=== PATIENT | female | born 1960 | race Caucasian/White ===

== ENCOUNTER 2018-04-04 13:00 | Emergency (ER) | payer OTHER ==
[~2018-04-04] VITALS: Ht 162.6 cm; Wt 78.7 kg
[~2018-04-04 13:00] MED LIST: CYCL10TA6 PO; DULO60CA44 PO; FENO160T PO; HYDR-3983 PO; META1TAB22 PO; SIMV40TA2 PO
[2018-04-04 13:02] VITALS: TEMP 36.5; Ht 162.6 cm; Wt 78.7 kg
[2018-04-04] MEDS ORDERED: OXYCODONE HCL IR 5 MG TAB (IMMEDIATE RELEASE) PO STA (13:31)
[2018-04-04] MEDS ORDERED: IBUP-1277 PO (13:56)
--- NOTE | 2018-04-04 14:57 | DIAGNOSTIC IMAGING REPORT ---
L-SPINE MIN 4 VIEWS ROUTINE HISTORY: Pain low back pain COMPARISON: None. FINDINGS: There is no fracture. Considerable degenerative disc change primarily from L4 through L5. Moderate osteophytic change anteriorly and posteriorly. Degenerative changes of the posterior arch including posterior facets. No evidence for compression deformity. IMPRESSION: Considerable degenerative change considered most prominent at L4-L5. No acute process. The above report was generated using voice recognition software. It may contain grammatical, syntax or spelling errors. Electronically signed by: Jhony Dietz M.D. 04/04/2018 2:56 PM Dictated Date/Time: 04/04/2018 2:55 PM
[2018-04-04] MEDS ORDERED: METH4PAK PO (15:31)
[2018-04-04] MEDS ORDERED: CYCL10TA6 PO (15:31)
[2018-04-04] MEDS ORDERED: HYDR-5688 PO (15:31)
--- NOTE | 2018-04-04 15:33 | EMERGENCY ROOM VISIT NOTE ---
ED Visit Note First contact with patient: 13:24 CHIEF COMPLAINT: Low back pain HISTORY OF PRESENT ILLNESS: This 57-year-old female patient presents to the emergency department, ambulatory, complaining of pain in the low back which began last night. The patient states she was lifting a an approximately 25 pound laundry basket full of wet towels when she felt a pop in her left low back and left hip, immediately causing pain radiating down the posterior aspect of the left leg. The pain was gradual in onset, is now constant and worse with movement. The patient notes the pain as sharp and a 8/10. The patient has taken Advil without relief of the pain. The patient denies any loss of control of their bowel or bladder functions. There has been no leg numbness or weakness , and no change in sensation. No nausea or vomiting or abdominal pain. No chest pain or shortness of breath. The patient has not had prior back injuries , but does report a history of chronic back pain. No dysuria or increased urinary frequency. REVIEW OF SYSTEMS: A 10 system review of systems was performed with positives and pertinent negatives listed in the history of present illness. All other systems were reviewed and are negative. ALLERGIES: Penicillin, clindamycin MEDICATIONS: Metaxalone,, Zocor, TriCor PMH: Chronic back pain, hyperlipidemia SOCIAL HISTORY: The patient lives locally with family. She admits to smoking cigarettes. She denies drug, alcohol use. PHYSICAL EXAM: VITALS: Vitals are noted on the nurse's note and reviewed by myself. Vital signs stable. GENERAL: This is a 57-year-old white female, in no acute distress, nondiaphoretic, well-developed well-nourished. SKIN: The skin was without rashes, erythema, edema, or bruising. Capillary refill less than 2 seconds. NECK: Supple without nuchal rigidity. No cervical spine tenderness. No paraspinous muscle tenderness. HEART: Regular rate and rhythm without murmurs gallops or rubs. LUNGS: Clear to auscultation bilaterally without wheezes, rales or rhonchi. ABDOMEN: Positive bowel sounds x 4. Normal tympanic percussion. Soft, nontender, without masses or organomegaly. Kerns sign negative. MUSCULOSKELETAL: No muscle atrophy, erythema, or edema noted of the back. There is no tenderness over the lumbar spinous processes. There is moderate tenderness over the paraspinous muscles on the left. There is no tenderness over the thoracic spine or paraspinous muscles. There are muscle spasms present. The patient is slow to move around with maximum tenderness with position changes. Positive left-sided straight leg raise test. NEURO: Patient was alert and oriented to person place and time. Normal sensation to light and sharp touch. Deep tendon reflexes 2+ in the lower extremities. Dorsalis pedis pulse 2+ bilaterally. Strength 5/5 and equal in the bilateral lower extremities. RADIOLOGY: L-SPINE MIN 4 VIEWS ROUTINE HISTORY: Pain low back pain COMPARISON: None. FINDINGS: There is no fracture. Considerable degenerative disc change primarily from L4 through L5. Moderate osteophytic change anteriorly and posteriorly. Degenerative changes of the posterior arch including posterior facets. No evidence for compression deformity. IMPRESSION: Considerable degenerative change considered most prominent at L4-L5. No acute process. The above report was generated using voice recognition software. It may contain grammatical, syntax or spelling errors. Electronically signed by: Jhony Dietz M.D. 04/04/2018 2:56 PM Dictated Date/Time: 04/04/2018 2:55 PM EMERGENCY DEPARTMENT COURSE: This 57-year-old female patient presents emergency department today complaining of severe back pain. The patient is not exhibiting any symptoms or have any complaints of cauda equina syndrome. The pain radiates down her left hip and left leg. She has been taking ibuprofen without relief. The patient does have a history of chronic back pain, and has experienced sciatica similar to this in the past. She has not seen any other providers regarding her pain. The patient was given a dose of OxyIR here in the emergency department with moderate improvement in her symptoms. X-rays were performed and reviewed by myself and radiologist as above. I suspect a lumbar strain with sciatica as the cause of the patient's symptoms. I did review PD MP and noted she had multiple short-term prescriptions for narcotics, but did recently have a rib fracture. The patient will be given a very short prescription of Christine as well as started on muscle relaxers and a Medrol Dosepak. She was encouraged to follow-up closely with her PCP and consider physical therapy as needed. The patient was agreeable and verbalized understanding of the treatment plan. All questions answered patient satisfaction prior to discharge. Discharge instructions reviewed, patient was discharged home in good condition. I attest that I have personally reviewed the patient's current medication list. Patient was found to have normal blood pressure on screening and does not require follow-up. Etiologies such as lumbago, sciatica, cauda equina, epidural abscess, osteomyelitis, fracture, aortic disease, metastatic disease, infection, renal colic, gastrointestinal, as well as others were entertained. DIAGNOSIS: Lumbar strain, sciatica The chart was completed utilizing [employer] Speech voice recognition software. Grammatical errors, random word insertions, pronoun errors, and incomplete sentences are an occasional consequence of this system due to software limitations, ambient noise, and hardware issues. Any formal questions or concerns about the content, text, or information contained within the body of this dictation should be directly addressed to the provider for clarification. Problem List Medical Problems: (1) Anxiety Disorder, Unspecified Status: Chronic (2) Chronic low back pain Status: Chronic (3) Depressive Disorder Nec Status: Chronic (4) Hyperlipidemia, Unspecified Status: Chronic Surgical Problems: (1) History of lumbar discectomy Status: Resolved (2) History of lumbar laminectomy Status: Resolved Current/Historical Medications Scheduled Cyclobenzaprine Hcl (Flexeril), 10 MG PO TID Duloxetine Hcl (Cymbalta), 60 MG PO HS Fenofibrate (Tricor), 160 MG PO HS Ibuprofen (Advil), 200 MG PO UD Methylprednisolone (Medrol Dosepak), 0 PO DAILY Simvastatin (Zocor), 40 MG PO QPM Scheduled PRN Cyclobenzaprine Hcl (Flexeril), 10 MG PO TID PRN for HS Hydrocodone/Acetaminophen 5MG/325MG (Christine 5MG/325MG), 1 TABLET PO Q4H PRN for Pain Metaxalone (Skelaxin), 800 MG PO TID PRN for prn Allergies Coded Allergies: Penicillins (Verified Allergy, Unknown, SINCE CHILD,DOESN'T KNOW RXN, ) Clindamycin (Unverified Adverse Reaction, Severe, FEVER BLISTERS IN MOUTH , 04/04/18) Vital Signs Date Time Temp Pulse Resp B/P (MAP) Pulse Ox O2 Delivery O2 Flow Rate FiO2 04/04/18 15:47 87 18 130/85 96 04/04/18 13:02 36.5 103 18 130/90 96 Room Air Medications Administered Medications (Trade) Dose Ordered Sig/Henny Route Start Time Stop Time Status Last Admin Dose Admin Oxycodone HCl (Roxicodone Immediate Rel Tab) 5 mg NOW STAT PO 04/04/18 13:31 04/04/18 13:32 DC 04/04/18 13:53 5 MG Departure Information Impression Primary Impression: Strain of lumbar region Additional Impression: Sciatica Dispostion Home / Self-Care Condition GOOD Prescriptions Hydrocodone/Acetaminophen 5MG/325MG (Christine 5MG/325MG) Tab 1 TABLET PO Q4H Y for Pain, #10 TAB For Initial Treatment Prov: Linda Johnson PA-C 04/04/18 Methylprednisolone (MEDROL DOSEPAK) 4 Mg Shaka 0 PO DAILY, #1 PKT Prov: Linda Johnson PA-C 04/04/18 Cyclobenzaprine Hcl (FLEXERIL) 10 Mg Tab 10 MG PO TID, #15 TAB Prov: Linda Johnson PA-C 04/04/18 Referrals Yi Ruiz CRNP (PCP) Patient Instructions ED Low Back Pain Injury, [facility] Additional Instructions You have been treated in the Emergency Department for Back Pain. You have received pain medicine in the emergency department which impairs your ability to operate a vehicle. It is illegal for you to drive after receiving these medicines. You have been prescribed Christine to be used for pain control. This is a narcotic medication. You cannot drive or consume alcohol while on this medicine. This medicine should only be used for pain that cannot be controlled with over-the- counter pain medicines. You have been prescribed Flexeril (cyclobenzaprine) 1 tabs orally, three times per day. Do NOT exceed 30 mg (3 tabs) per day. Take your first dose at bedtime as it can make you drowsy. Always take all medications as prescribed. You have been prescribed a Medrol Dosepak. This is a steroid which will help decrease your inflammation, redness, and itch. Take the medicine as prescribed. Take the ENTIRE 6 day course of the steroids. For pain control, you can use the following neov-qbf-tbaazle medicines (if >12 yo): Ibuprofen(Motrin, Advil) may be used for fever or pain. Use 600mg every six hours as needed. Take with food. Avoid using more than 2400mg in a 24 hour period. Do not use 2400mg per day for more than three consecutive days without physician direction. Prolonged inappropriate use can lead to stomach upset or ulcers. (AND/OR) Acetaminophen(Tylenol) may be used for fever or pain. Use 1000mg every six hours as needed. Avoid using more than 3000mg in a 24 hour period. If this is an acute injury, ice can be applied to the area of pain for the first 3 days to help decrease pain and inflammation. After the first 3 days, a heating pad can be used over the area for continued soothing relief. You should schedule a follow-up appointment in 2-3 days with your Primary Care Provider for further evaluation and treatment of your back pain. Return to the Emergency Department if your current symptoms worsen despite treatment course outlined above, or if you develop any of the following symptoms : intractable pain despite aforementioned treatment course, loss of control of your bowel or bladder, numbness or tingling in your groin, or development of a fever. Problem Qualifiers Primary Impression: Strain of lumbar region Encounter type: initial encounter Qualified Codes: S39.012A - Strain of muscle, fascia and tendon of lower back, initial encounter Additional Impression: Sciatica Laterality: left Qualified Codes: M54.32 - Sciatica, left side
[2018-04-04 15:47] VITALS: BP 130/85; PULSE 87; O2SAT 96
== END 2018-04-04 15:42 | disposition home or self-care (01) ==
LOC: C.EDB 13:01 → C.EDD 15:42
DX: M54.42 Lumbago with sciatica, left side (principal); S39.012A Strain of muscle, fascia and tendon of lower back, initial encounter; X50.0XXA Overexertion from strenuous movement or load, initial encounter; E78.5 Hyperlipidemia, unspecified; G89.29 Other chronic pain; Z88.0 Allergy status to penicillin; Z88.1 Allergy status to other antibiotic agents; Z79.899 Other long term (current) drug therapy; Z72.0 Tobacco use

== ENCOUNTER 2020-06-05 09:36 | Inpatient (IN) ==
--- NOTE | 2020-05-20 09:26 | PAT Medication Instructions ---
Medication Instructions Date of Service May 20, 2020 Home Medications Medication Instructions Recorded fenofibrate 160 mg tablet 160 mg PO HS #90 tab 10/30/19 duloxetine 60 mg capsule,delayed 60 mg PO HS #90 cap 12/01/19 release simvastatin 40 mg tablet 40 mg PO HS #90 tab 03/06/20 lidocaine 1 patch TOP DAILY PRN #15 ea 04/14/20 estradiol 2 mg tablet 2 mg PO DAILY #90 tab 04/23/20 progesterone micronized 100 mg 100 mg PO QAM 90 Days #90 cap 04/23/20 capsule pregabalin 200 mg capsule 200 mg PO TID #90 cap 04/29/20 bupropion HCl 300 mg 24 hr tablet, 300 mg PO QAM #90 tab 05/15/20 extended release hydrocodone 5 mg-acetaminophen 325 1 tab PO Q4H PRN #18 tab 05/15/20 mg tablet ibuprofen 200 mg tablet 600 mg PO BID PRN cyclobenzaprine 10 mg tablet 10 mg PO HS PRN fenofibrate 160 mg tablet 160 mg PO HS duloxetine 60 mg capsule,delayed release 60 mg PO HS simvastatin 40 mg tablet 40 mg PO HS lidocaine 1 patch TOP DAILY PRN estradiol 2 mg tablet 2 mg PO DAILY progesterone micronized 100 mg capsule 100 mg PO QAM pregabalin 200 mg capsule 200 mg PO TID bupropion HCl 300 mg 24 hr tablet, extended release 300 mg PO QAM hydrocodone 5 mg-acetaminophen 325 mg tablet 1 tab PO Q4H PRN Continue as directed lidocaine 1 patch TOP DAILY PRN (okay to use if needed but avoid placement over surgery site area prior to surgery) ASK your surgeon for instructions ibuprofen 200 mg tablet 600 mg PO BID PRN estradiol 2 mg tablet 2 mg PO DAILY progesterone micronized 100 mg capsule 100 mg PO QAM STOP taking 48 hours before surgery fenofibrate 160 mg tablet 160 mg PO HS Take morning of surgery With a small sip of water, OTHERWISE NOTHING TO EAT OR DRINK AFTER MIDNIGHT: pregabalin 200 mg capsule 200 mg PO TID bupropion HCl 300 mg 24 hr tablet, extended release 300 mg PO QAM hydrocodone 5 mg-acetaminophen 325 mg tablet 1 tab PO Q4H PRN (okay to take up to 4 hours prior to surgery if needed) Take evening before surgery cyclobenzaprine 10 mg tablet 10 mg PO HS PRN (if needed) duloxetine 60 mg capsule,delayed release 60 mg PO HS simvastatin 40 mg tablet 40 mg PO HS pregabalin 200 mg capsule 200 mg PO TID hydrocodone 5 mg-acetaminophen 325 mg tablet 1 tab PO Q4H PRN (if needed) Other Notes If you have any questions please call us at [phone] or [phone] or [phone] or [phone]
--- NOTE | 2020-05-21 14:52 | Anesthesiology Consultation ---
Date of Service May 21, 2020 Assessment & Plan (1) Encounter for pre-operative examination: - Per assessment on 05/21: Travel screen negative. No known COVID-19 positive contacts or current COVID-19 related symptoms. Surgeon arranging preop COVID testing. Awaiting results. - S/P L3-L4 microdiscectomy: 12/20/12: "easy to mask ventilate"/Grade I view, MAC#3, ETT 7 at [facility] Chart Review Chart Review: Acceptable Risk for Surgery (pending surgeon-ordered PCP clearance) and Patient seen in Pre Admission Testing Teaching & Discussion Pre-Anesthesia Teaching/Discussion Notes: Instructed NPO after midnight before surgery,except medications with 15 cc of water. Medication instructions provided according to the PAT guidelines. History Surgery Operation Date: 06/04/20 11:05 Proposed Procedures p L3-L4 Revision Decompression L3-L5 Fusion - Serge Arthur DO Height/Weight Height: 5 ft 6 in Weight: 89 kg Allergies Allergy/AdvReac Type Severity Reaction Status Date / Time clindamycin Allergy Severe fever, Verified 05/20/20 09:24 mouth blisters Penicillins Allergy Unknown rxn as Verified 05/20/20 09:24 child, unknown rxn Medications Home Medications Medication Instructions Recorded Confirmed Last Taken ibuprofen 200 mg tablet 600 mg PO BID PRN tab 05/16/18 05/17/20 04/14/20 07:30 cyclobenzaprine 10 mg tablet 10 mg PO HS PRN tab 02/06/19 05/17/20 Unknown fenofibrate 160 mg tablet 160 mg PO HS #90 tab 10/30/19 05/17/20 04/13/20 duloxetine 60 mg capsule,delayed 60 mg PO HS #90 cap 12/01/19 05/17/20 04/13/20 release simvastatin 40 mg tablet 40 mg PO HS #90 tab 03/06/20 05/17/20 04/13/20 lidocaine 1 patch TOP DAILY PRN #15 ea 04/14/20 05/17/20 Unknown estradiol 2 mg tablet 2 mg PO DAILY #90 tab 04/23/20 05/17/20 Unknown progesterone micronized 100 mg 100 mg PO QAM 90 Days #90 cap 04/23/20 05/17/20 Unknown capsule pregabalin 200 mg capsule 200 mg PO TID #90 cap 04/29/20 05/17/20 Unknown bupropion HCl 300 mg 24 hr tablet, 300 mg PO QAM #90 tab 05/15/20 05/17/20 Unknown extended release hydrocodone 5 mg-acetaminophen 325 1 tab PO Q4H PRN #18 tab 05/15/20 05/17/20 Unknown mg tablet Past Medical History Medical History Degenerative disc disease Depressive disorder Dyslipidemia Obesity Exercise / Class Metabolic Activity II 4-5 Yardwork/Stairs/Walk up hill (one flight of stairs (no chest pain, no sob)) Past Family History Family History Mother Breast cancer Hypertension Grandmother (Maternal) Breast cancer Father Diabetes Other No family history of adverse response to anesthesia Denies family history of Ovarian cancer Prostate cancer Myocardial infarction Colorectal cancer Past Surgical History Surgical History H/O microdiscectomy L3-L4 microdiscectomy: 12/20/12: "easy to mask ventilate"/Grade I view, MAC#3, ETT 7 at [facility] History of colonoscopy History of lumbar laminectomy History of tonsillectomy and adenoidectomy Past Anesthesia History No Hx of Anesthesia Complications and No Family Hx of Anesthesia Complications History of PONV No Hx of PONV and No Hx of Motion Sickness Social History Smoking Status: Current every day smoker tobacco type: cigarettes Smoking cigarettes per day: 1/2 ppd x 30 years Do You Dip or Chew Tobacco: No Hx Alcohol Use: No Hx Substance Use: No substance use type: does not use Review of Systems Patient denies chest pain, shortness of breath, dyspnea on exertion, fever, chills, cough, wheezing, palpitations. Physical Exam PHYSICAL Full neck and c-spine range of motion. Full TMJ range of motion. TMD 3 finger breaths Mallampati Score 2 Lungs: clear throughout to auscultation Cardiac: regular rate and rhythm, no murmurs noted Spine: normal Carotid arteries: negative bruit Extremities: no edema Testing Laboratory Results PT 10.9 Seconds (9.0-12.0) 05/21/20 15:27 INR 1.0 (0.9-1.1) 05/21/20 15:27 APTT 29.6 Seconds (21.0-31.0) 05/21/20 15: Urine Color Yellow 05/21/20 15: Urine Appearance Clear (Clear) 05/21/20 15: Urine pH 5.0 (4.5-7.5) 05/21/20 15: Ur Specific Gleason 1.025 (1.000-1.030) 05/21/20 15: Urine Protein Negative (Negative) 05/21/20 15: Urine Glucose (UA) Negative (Negative) 05/21/20 15: Urine Ketones Negative (Negative) 05/21/20 15: Urine Nitrite Negative (Negative) 05/21/20 15: Ur Leukocyte Esterase Negative (Negative) 05/21/20 15: Blood Type O Positive 05/21/20 15: Antibody Screen NEGATIVE 05/21/20 15:27 04/29/20 WBC 8.44 H/H 15.1/46.5 PLATELETS 275 04/14/20 SODIUM 141 POTASSIUM 4.2 CHLORIDE 110 CO2 25 BUN 19 CREATININE 1.09 GLUCOSE 104 Electrocardiogram Date: 05/21/20 NSR at 87bpm. unconfirmed report. Other Testing Chest CT: 05/16/20: FINDINGS: Thyroid: Imaged portions of the thyroid gland are normal in appearance. Thoracic aorta: The ascending thoracic aorta measures 34 mm in diameter. Heart: The heart is normal in size and configuration, without pericardial effusion. Lungs and pleural spaces: There are no pleural effusions. There is no focal pulmonary consolidation. No endobronchial lesions are visualized. There are no suspicious pulmonary nodules. Mediastinum: There is no evidence of pathologic mediastinal lymphadenopathy. Jami: There is no evidence of pathologic hilar adenopathy given the limitations of a noncontrast study. Axilla: There is no evidence of pathologic axillary lymphadenopathy. Upper abdomen: Partially visualized upper abdominal viscera is within normal limits. Skeletal structures: There are no lytic or blastic osseous lesions. IMPRESSION: No suspicious pulmonary findings.
[2020-05-21 16:11] LABS: Appearance Urine Clear (Clear); Bilirubin Urine Negative (Negative); Blood Urine Negative (Negative); Color Urine Yellow; Glucose Urine UA Negative (Negative); Ketones Urine Negative (Negative); Leukocyte Esterase Urine Negative (Negative); Nitrite Urine Negative (Negative); Protein Urine Negative (Negative); Specific Gravity Urine 1.025 (1.000-1.030); Urobilinogen Urine Negative (Negative)
[2020-05-21 16:19] LABS: Partial Thromboplastin Ratio 1.1; Partial Thromboplastin Time 29.6 Seconds (21.0-31.0); Prothrombin Time 10.9 Seconds (9.0-12.0)
--- NOTE | 2020-05-22 14:23 | Electrocardiogram Report ---
Test Reason : Blood Pressure : / mmHG Vent. Rate : 087 BPM Atrial Rate : 087 BPM P-R Int : 160 ms QRS Dur : 096 ms QT Int : 370 ms P-R-T Axes : 067 072 055 degrees QTc Int : 445 ms Normal sinus rhythm Normal ECG When compared with ECG of 14-DEC-2012 14:56, Nonspecific T wave abnormality no longer evident in Inferior leads Confirmed by Andrew Fong ([id number]) on 05/22/2020 2:22:32 PM Referred By: Serge Arthur Confirmed By:Andrew Fong
[~2020-06-05 09:36] MED LIST changes: +ACETAMINOPHEN 500 MG TAB PO SCH; +CEFAZOLIN 2000MG 2,000 MG/15 ML SYR IV SCH; -CYCL10TA6 PO; +CeleBREX 200 MG CAP PO SCH; -DULO60CA44 PO; -FENO160T PO; +GABAPENTIN 600 MG DOSE PO SCH; -HYDR-3983 PO; +LR 15ML/HR IV SCH; -META1TAB22 PO; -SIMV40TA2 PO
[2020-06-05] MEDS ORDERED: NEOSTIGMINE METHYLSULFATE 1 MG/ML 10ML VIAL ONE (09:39)
[2020-06-05] MEDS ORDERED: MIDAZOLAM HCL 1 MG/ML 2ML VIAL ONE (09:39)
[2020-06-05] MEDS ORDERED: GLYCOPYRROLATE 0.2 MG/ML VIAL ONE ×2 (09:39→12:34)
[2020-06-05] MEDS ORDERED: ONDANSETRON INJ 2 MG/ML 2 ML VIAL ONE (09:39)
[2020-06-05] MEDS ORDERED: DEXAMETHASONE SOD INJ 4 MG/ML VIAL ONE (09:39)
[2020-06-05] MEDS ORDERED: LIDOCAINE HCL 2% 2 ML VIAL/AMP(20MG/ML) INFIL ONE (09:39)
[2020-06-05] MEDS ORDERED: ROCURONIUM BROMIDE 10 MG/ML 5 ML VIAL IV ONE (09:39)
[2020-06-05] MEDS ORDERED: PROPOFOL IV EMULSION 10 MG/ML 20 ML VIAL IV ONE (09:39)
[2020-06-05] MEDS ORDERED: fentaNYL citrate 100 MCG/2 ML VIAL ONE (09:39)
[2020-06-05] MEDS ORDERED: ATROPINE SULFATE 0.1 MG/ML 10ML SYR IV PRN (10:33)
[2020-06-05] MEDS ORDERED: ePHEDrine sulfate 50 MG/ML AMP IV PRN (10:33)
[2020-06-05] MEDS ORDERED: ONDANSETRON INJ 2 MG/ML 2 ML VIAL IV PRN ×2 (10:33→15:54)
--- NOTE | 2020-06-05 10:50 | History & Physical Bridge Note ---
Date of Service June 05, 2020 History & Physical Bridge Note I have examined the patient, reviewed the History & Physical and in the interval since the performance of the History & Physical I have noted the following changes of clinical significance: no changes noted
--- NOTE | 2020-06-05 10:51 | History & Physical Report ---
Date of Service June 05, 2020 Assessment & Plan (1) Neurogenic claudication due to lumbar spinal stenosis: Admission and Anticipated Discharge Date Admission Date: L3-L4 revision decompression, L3-L5 fusion History of Present Illness Chief Complaint: Back and bilateral leg pain Primary Care Provider: Elian Littlejohn MD This is a 60-year-old female who presents with worsening back and bilateral leg pain. After failing course of nonoperative care is here for surgical invention. Allergies Allergy/AdvReac Type Severity Reaction Status Date / Time clindamycin Allergy Severe fever, Verified 06/05/20 09:48 mouth blisters Penicillins Allergy Unknown rxn as Verified 06/05/20 09:48 child, unknown rxn Home Medications Home Medications Medication Instructions Recorded Confirmed Type ibuprofen 200 mg tablet 600 mg PO BID PRN tab 05/16/18 06/05/20 History cyclobenzaprine 10 mg tablet 10 mg PO HS PRN tab 02/06/19 06/05/20 History fenofibrate 160 mg tablet 160 mg PO HS #90 tab 10/30/19 06/05/20 Rx duloxetine 60 mg capsule,delayed 60 mg PO HS #90 cap 12/01/19 06/05/20 Rx release simvastatin 40 mg tablet 40 mg PO HS #90 tab 03/06/20 06/05/20 Rx estradiol 2 mg tablet 2 mg PO DAILY #90 tab 04/23/20 06/05/20 Rx progesterone micronized 100 mg 100 mg PO QAM 90 Days #90 cap 04/23/20 06/05/20 Rx capsule bupropion HCl 300 mg 24 hr tablet, 300 mg PO QAM #90 tab 05/15/20 06/05/20 Rx extended release pregabalin 200 mg capsule 200 mg PO TID #90 cap 05/28/20 06/05/20 Rx acetaminophen [Tylenol Extra 1,000 mg PO Q6H PRN 06/05/20 06/05/20 History Strength] Past Med/Surg History Medical History Degenerative disc disease Depressive disorder Dyslipidemia Obesity Surgical History H/O microdiscectomy L3-L4 microdiscectomy: 12/20/12: "easy to mask ventilate"/Grade I view, MAC#3, ETT 7 at [facility] History of colonoscopy History of lumbar laminectomy History of tonsillectomy and adenoidectomy Family History Mother Breast cancer Hypertension Grandmother (Maternal) Breast cancer Father Diabetes Other No family history of adverse response to anesthesia Denies family history of Ovarian cancer Prostate cancer Myocardial infarction Colorectal cancer Social History Smoking Status: Current every day smoker (STARTED AT 17 YEARS OLD, AVERAGED 20 CIGARETTES/DAY) Tobacco Type: Cigarettes Cigarettes Per Day: 10; Second Hand Exposure: No; Do You Dip or Chew Tobacco: No; Tobacco Cessation Education Requested by Patient: No Hx Alcohol Use: No Hx Substance Use: No Preferred Language: Frisian Communication Ability: Effective Visual Impairment: Limited Hearing Ability: Normal Jewel Waxer Required: No Beliefs That Will Affect Care: None marital status: Current Living Situation: Family Feels Safe at Home: Yes Safety Concerns: Feels Safe At This Time Assistive Devices: Glasses Physical Exam Physical Exam: Patient is alert and oriented Heart regular rate and rhythm. Lungs clear to auscultation. Results & Data ([facility]) Vital Signs (Past 12 Hours) Vital Signs Temp Pulse Resp BP Pulse Ox 06/05/20 10:03 36.6 C 90 20 145/88 H 96
[2020-06-05] MEDS ORDERED: BUPIVACAINE/EPINEPHRINE 0.25% 1:200,000 30 ML VIAL ONE (11:08)
[2020-06-05] MEDS ORDERED: BACITRACIN INJ 50,000 UNIT VIAL ONE (11:08)
[2020-06-05] MEDS ORDERED: PHENYLEPHRINE 100MCG/ML 5ML SYR ONE (12:34)
--- NOTE | 2020-06-05 13:32 | Operative Report ---
Post Operative Report Pre & Post Diagnosis Operation Date: 06/05/20 11:05 Pre-Op Diagnosis: Spinal Stenosis, Lumbar Region with Neurogenic Claudication Post-Op Diagnosis: Spinal Stenosis, Lumbar Region with Neurogenic Claudication I identified the patient and participated in the time-out.: Yes Procedure Operation Date: 06/05/20 11:05 Actual Procedures #1 revision decompression with bilateral medial facetectomies and foraminotomies L3-4 and L4-5 per #2 posterior spinal fusion L3 4454 #3 placed posterior instrumentation L3-4 L4-5 per #4 interbody fusion L3-4 L4-5 #5 placed a peek cage 11 x 26 mm at L3-4 and 9 x 26 mm at L4-5. #6 placement likely Hand 1 cm graft in the posterior lateral gutters. #7 placement for his collagen sponge, and master graft in the posterior gutters and osteopenic body space. Surgeon Sereg Arthur, DO Tobacco Blender Katlin Gaitan Estimated Blood Loss 250 Findings See Below The patient is 5 foot 6 inches tall weighing over 87 kg with a BMI in excess of 31. Patient's body habitus did an increased technical difficulty requiring at least 25% increase in the operative time. Specimens None Indications This is a 60-year-old female who presents with above-mentioned diagnosis after failing since course of nonoperative care is here for the above-mentioned procedure. Description of Procedure Patient was met with identified informed consent obtained. Patient was then taken to the operative suite underwent and patient placed in a prone position on a Stone table on top of the listed frame. All bony prominences well-padded I suspected to ensure no external pressure placed upon the bed at this point the lumbar spine was prepped and draped in normal sterile fashion. Sharp dissection with the assistance of bradycardias from down to and exposing the remaining lamina and transverse processes of L3-L4 and L5 bilaterally. Caudal cephalad fashion revision complete laminectomy of L4 and L3 was performed including bilateral medial facetectomies and foraminotomies addressing severe spinal stenosis. Pedicle screws were then placed in L3 and L4 on L5 bilaterally with assistance of fluoroscopy the potential jason placed. By way of transfemoral approach on radically discectomy of L4-5 was performed and projected to subcortical bleeding bone and a 9 x 26 mm peek cage filled with osteoamp graft after position. I then approached L3-[address] of transfer and approach on the right and the discectomy performed endplates graded to subcortical bleeding bone and 11 x 26 mm peek cage filled with osteoamp graft tapped in position. There are then compressed locked position bilaterally. The transverse processes of L3-L4 5 to subcortical bleeding bone. Master graft and infuse collagen sponge was then placed in the posterior lateral gutters. 59 STEPHANE drain inserted. Incision was then closed with 1 Vicryl in the fascia 2-0 Vicryl subcutaneously and 4 Monocryl for final skin closure. Please note spinal cord monitoring was utilized throughout the procedure no changes noted. Laila Gaitan was present at the entire surgery and while the patient position complex portions of the surgery and final skin closure. I attest to the content of the Intraoperative Record and any orders documented therein. Any exceptions are noted below.
[2020-06-05] MEDS: FLOSEAL HEMOSTATIC MATRIX 10ML TOP ONE (13:35)
[2020-06-05] MEDS: fentaNYL citrate 100 MCG/2 ML VIAL IV PRN ×2 (13:57→14:02)
[2020-06-05] MEDS: HYDROmorphone INJ 2 MG/ML SYR/VIAL IV PRN ×4 (14:07→14:25)
--- NOTE | 2020-06-05 14:16 | Fluoroscopy Report ---
INTRAOPERATIVE RADIOGRAPHS CLINICAL HISTORY: Lumbar spinal fusion. Fluoroscopy time: 20 seconds. FINDINGS: 2 spot fluoroscopic views of the lumbar spine are presented. There has been discectomy at L 3-L4 and L4-L5 laminectomy and posterior fusion from L3-L5. Interpedicular screws are present at all levels. The orthopedic hardware appears intact. IMPRESSION: Intraoperative images from L3-L5 spinal fusion as above. Electronically signed by: Jagjit Murphy M.D. 06/05/2020 2:14 PM
--- NOTE | 2020-06-05 14:38 | Anesthesiology Progress Note ---
Date of Service June 05, 2020 Anesthesia Post Procedure Vital Signs Vital Signs: Temp Pulse Pulse Resp BP BP Pulse Ox 06/05/20 14:25 90 16 145/87 H 96 06/05/20 14:15 87 12 136/80 98 06/05/20 14:05 88 15 146/95 H 96 06/05/20 13:55 86 15 151/96 H 97 06/05/20 13:48 36.5 C 85 12 151/96 H 96 06/05/20 10:03 36.6 C 90 20 145/88 H 96 Pain Intensity Lower Back: Pain Intensity: 5 Transfer of Care Handoff Completed per policy Notes Mental Status: alert / awake / arousable and participated in evaluation Patient Amnestic to Procedure: Yes Nausea / Vomiting: adequately controlled Pain: adequately controlled Airway Patency, RR, SpO2: stable & adequate BP & HR: stable & adequate Hydration State: stable & adequate Anesthetic Complications: no major complications apparent and Pt Satisfied with anesthetic care
[2020-06-05] MEDS ORDERED: DO NOT ADMINISTER FLU VACCINE PRN (15:54)
[2020-06-05] MEDS ORDERED: HYDROmorphone INJ 0.5 MG/0.5 ML SYR IV PRN (15:54)
[2020-06-05] MEDS ORDERED: MAGNESIUM HYDROXIDE SUSP 30 ML UDC PO PRN (15:54)
[2020-06-05] MEDS ORDERED: ACETAMINOPHEN 1,000 MG/100 ML VIAL IV PRN (15:54)
[2020-06-05] MEDS ORDERED: ALUMINUM/MAGNESIUM SUSP 30 ML UDC PO PRN (15:54)
[2020-06-05] MEDS ORDERED: IBUPROFEN 600 MG TAB PO PRN (15:54)
[2020-06-05] MEDS ORDERED: SOD PHOSPHATE/SOD BIPHOSPHATE ENEMA 132 ML BTL PR PRN (15:54)
[2020-06-05] MEDS ORDERED: METOCLOPRAMIDE HCL INJ 5 MG/ML 2 ML VIAL IV PRN (15:54)
[2020-06-05] MEDS ORDERED: bisacodyL 10 MG SUPP PR PRN (15:54)
[2020-06-05] MEDS ORDERED: ONDANSETRON 4 MG OD TAB PO PRN (15:54)
[2020-06-05] MEDS ORDERED: NALOXONE HCL 0.4 MG/1 ML VIAL/CARP IV PRN (15:54)
[2020-06-05] MEDS ORDERED: DO NOT ADMINISTER PNEUMOCOCCAL VACCINE PRN (15:54)
[2020-06-05] MEDS ORDERED: LORazepam 0.5 MG TAB PO PRN (15:54)
[2020-06-05] MEDS ORDERED: PROMETHAZINE HCL 12.5 MG in SODIUM CHLORIDE 0.9% 50 ML IV PRN (15:54)
[2020-06-05] MEDS ORDERED: LORazepam 0.5 MG/1 ML VIAL IV PRN (15:54)
[2020-06-05] MEDS ORDERED: LACTATED RINGER'S 1,000 ML IV SCH (15:54)
[2020-06-05] MEDS ORDERED: FAMOTIDINE 20 MG TAB PO PRN (15:54)
[2020-06-05] MEDS ORDERED: CYCLOBENZAPRINE HCL 10 MG TAB PO PRN (16:00)
[2020-06-05] MEDS: OXYCODONE HCL IR 5 MG TAB (IMMEDIATE RELEASE) PO PRN ×2 (16:17→20:20)
--- NOTE | 2020-06-05 17:32 | Hospitalist Consultation ---
Date of Consultation June 05, 2020 Assessment & Plan (1) Chronic lumbar pain: s/p L3-L4 Revision Decompression, L3-L5 Fusion Surgeon: Serge Arthur, continues with lyrica and prn pain medications patient has a STEPHANE drain in place (2) Depressive disorder: continue Cymbalta and Wellbutrin (3) Tobacco dependence: nicotine patch ordered History of Present Illness Attending Physician: Serge Arthur, DO History of Present Illness 06/05/20 L3-L4 Revision Decompression, L3-L5 Fusion, patient seen postoperatively she doing quite well her pain is controlled she has no complaints or problems he previously has had discectomies without good relief subsequently eventually proceeding to this decompression fusion Allergies Allergy/AdvReac Type Severity Reaction Status Date / Time clindamycin Allergy Severe fever, Verified 06/05/20 09:48 mouth blisters Penicillins Allergy Unknown rxn as Verified 06/05/20 09:48 child, unknown rxn Home Medications Home Medications Medication Instructions Recorded Confirmed Type ibuprofen 200 mg tablet 600 mg PO BID PRN tab 05/16/18 06/05/20 History cyclobenzaprine 10 mg tablet 10 mg PO HS PRN tab 02/06/19 06/05/20 History fenofibrate 160 mg tablet 160 mg PO HS #90 tab 10/30/19 06/05/20 Rx duloxetine 60 mg capsule,delayed 60 mg PO HS #90 cap 12/01/19 06/05/20 Rx release simvastatin 40 mg tablet 40 mg PO HS #90 tab 03/06/20 06/05/20 Rx estradiol 2 mg tablet 2 mg PO DAILY #90 tab 04/23/20 06/05/20 Rx progesterone micronized 100 mg 100 mg PO QAM 90 Days #90 cap 04/23/20 06/05/20 Rx capsule bupropion HCl 300 mg 24 hr tablet, 300 mg PO QAM #90 tab 05/15/20 06/05/20 Rx extended release pregabalin 200 mg capsule 200 mg PO TID #90 cap 05/28/20 06/05/20 Rx acetaminophen [Tylenol Extra 1,000 mg PO Q6H PRN 06/05/20 06/05/20 History Strength] Patient History Medical History (Updated 06/05/20 @ 17:49 by Franco Zaman MD) Degenerative disc disease Depressive disorder Dyslipidemia Obesity Surgical History H/O microdiscectomy L3-L4 microdiscectomy: 12/20/12: "easy to mask ventilate"/Grade I view, MAC#3, ETT 7 at [facility] History of colonoscopy History of lumbar laminectomy History of tonsillectomy and adenoidectomy Family History Mother Breast cancer Hypertension Grandmother (Maternal) Breast cancer Father Diabetes Other No family history of adverse response to anesthesia Denies family history of Ovarian cancer Prostate cancer Myocardial infarction Colorectal cancer Social History Smoking Status: Current every day smoker (STARTED AT 17 YEARS OLD, AVERAGED 20 CIGARETTES/DAY) Tobacco Type: Cigarettes Cigarettes Per Day: 10; Second Hand Exposure: No; Do You Dip or Chew Tobacco: No; Tobacco Cessation Education Requested by Patient: No Hx Alcohol Use: No Hx Substance Use: No Preferred Language: Lao Communication Ability: Effective Visual Impairment: Limited Hearing Ability: Normal Manager Agriculture Required: No Beliefs That Will Affect Care: None marital status: Current Living Situation: Family Feels Safe at Home: Yes Safety Concerns: Feels Safe At This Time Assistive Devices: Glasses Review of Systems Review of Systems: Mild distress and fatigue no headache, blurry or double vision no speech or swallowing issues no chest pain, pressure or palpitations no shortness of breath, cough or wheezes no abdominal pain, nausea or vomiting, diarrhea or constipation no dysuria, hematuria or frequency Focal postoperative back pain without radiation no back pain, CVA tenderness or radicular pain no bruising, bleeding or rashes no focal signs of weakness or numbness or altered sensation no complaints of anxiety or depression. Physical Exam Physical Exam: The patient appeared well nourished and normally developed. Vital signs as documented. Head exam is normocephalic atraumatic no scleral icterus Neck is without JVD, thyromegaly, or carotid bruits. Lungs are clear to auscultation, no focal loss of breath sounds Cardiac exam, Rhythm is regular.. No murmurs, rubs or gallops. Abdominal exam reveals normal bowel sounds, soft non tender, no masses Extremities are nonedematous and both pedal pulses are present Neurologic exam is alert and oriented, no focal loss of strength or sensation Skin is without bruises or rash good distal perfusion to her lower extremities Psychologically is without concerns for anxiety or depression. Results & Data Results & Data ([facility]) Vital Signs (Past 12 Hours) Vital Signs Temp Pulse Pulse Resp BP BP Pulse Ox 06/05/20 16:35 98 H 16 118/76 96 06/05/20 16:02 97.9 F 100 H 17 136/84 95 06/05/20 15:30 98.2 F 100 H 18 130/81 96 06/05/20 15:15 92 H 18 129/87 93 06/05/20 15:00 94 H 13 116/95 95 06/05/20 14:45 92 H 12 133/81 93 06/05/20 14:35 97.7 F 93 H 15 136/88 93 06/05/20 14:25 90 16 145/87 H 96 06/05/20 14:15 87 12 136/80 98 06/05/20 14:05 88 15 146/95 H 96 06/05/20 13:55 86 15 151/96 H 97 06/05/20 13:48 97.7 F 85 12 151/96 H 96 06/05/20 10:03 97.9 F 90 20 145/88 H 96 PG Care Time/CCT Total # of Minutes Spent Total Time Spent with Patient: Total time spent is greater than 50% in coordination of care (as documented) at patient's floor/unit and/or counseling patient: Coding Level of Care Code 89979 Inpt Consult Level 2 Diagnoses Chronic lumbar pain M54.5; G89.29 Depressive disorder F32.9 Tobacco dependence F17.200
[2020-06-05] MEDS: PREGABALIN 100 MG CAP PO SCH ×2 (17:36→22:36)
[2020-06-05] MEDS: NICOTINE 21 MG/24 HR TDSY TD SCH (18:51)
[2020-06-05] MEDS: CEFAZOLIN 2000MG 2,000 MG/15 ML SYR IV SCH (20:33)
[2020-06-05] MEDS: DOCUSATE SODIUM/SENNA 50/8.6MG TAB PO SCH (21:28)
[2020-06-05] MEDS: DULOXETINE HCL 60 MG CAP PO SCH (21:28)
[2020-06-05] MEDS: FENOFIBRATE NANOCRYSTALLIZED 145 MG TABLET PO SCH (21:28)
[2020-06-05] MEDS: SIMVASTATIN 40 MG TAB PO SCH (21:28)
[2020-06-05] MEDS: ACETAMINOPHEN 500 MG TAB PO PRN (22:19)
[2020-06-06] MEDS: CEFAZOLIN 2000MG 2,000 MG/15 ML SYR IV SCH (02:53)
[2020-06-06] MEDS: OXYCODONE HCL IR 5 MG TAB (IMMEDIATE RELEASE) PO PRN ×3 (02:53→13:09)
[2020-06-06] MEDS: POLYETHYLENE (MIRALAX) 17 GM PACK PO SCH ×4 (02:56→23:28)
[2020-06-06] MEDS: NICOTINE 21 MG/24 HR TDSY TD SCH (07:41)
[2020-06-06] MEDS: BuPROPion XL 300 MG TABCR PO SCH (07:42)
[2020-06-06] MEDS: estradioL 1 MG TAB PO SCH (07:42)
[2020-06-06] MEDS: ACETAMINOPHEN 500 MG TAB PO PRN (07:43)
[2020-06-06 08:09] LABS: Basophils # (auto) 0.01 K/uL (0-0.2); Basophils % (auto) 0.1 %; Eosinophils # (auto) 0.01 K/uL (0-0.5); Eosinophils % (auto) 0.1 %; Hemoglobin 11.6 g/dL (12.0-16.0); Immature Granulocytes # (auto) 0.02 K/uL (0.00-0.02); Immature Granulocytes % (auto) 0.2 %; Lymphocytes # (auto) 1.87 K/uL (1.2-3.4); Lymphocytes % (auto) 16.1 %; Mean Corpuscular Hemoglobin 32.9 pg (25-34); Mean Corpuscular Hgb Conc 32.2 g/dL (32-36); Monocytes # (auto) 0.98 K/uL (0.11-0.59); Monocytes % (auto) 8.4 %; Neutrophils # (auto) 8.72 K/uL (1.4-6.5); Neutrophils % (auto) 75.1 %; Platelet Count 207 K/uL (130-400); RDW Coefficient of Variation 13.4 % (11.5-14.5); Red Blood Count 3.53 M/uL (4.2-5.4); White Blood Count 11.61 K/uL (4.8-10.8)
[2020-06-06] MEDS: PREGABALIN 100 MG CAP PO SCH ×3 (08:16→20:49)
[2020-06-06 08:47] LABS: BUN Creatinine Ratio 16.8 (10-20); Calcium 8.6 mg/dl (8.5-10.1); Creatinine Clr Calc Pharmacy 77.6 ml/min; Est GFR (African American) 83.9; Est GFR (Non-African American) 72.4; Potassium 3.9 mmol/L (3.5-5.1)
--- NOTE | 2020-06-06 10:54 | Orthopedic Progress Note ---
Date of Service June 06, 2020 Assessment & Plan (1) Neurogenic claudication due to lumbar spinal stenosis: Admission and Anticipated Discharge Date Admission Date: June 05, 2020 Stable continue physical therapy monitor STEPHANE output anticipate discharge home in next day or so. Subjective Back pain controlled leg symptoms improved. Physical Exam Physical Exam: Patient is good strength testing appears comfortable. Results & Data ([facility]) Vital Signs (Past 12 Hours) Vital Signs Temp Pulse Resp BP BP Pulse Ox 06/06/20 07:25 37.1 C 96 H 18 95/58 L 92 06/06/20 03:12 36.9 C 102 H 18 104/69 91 06/05/20 23:30 36.8 C 93 H 18 106/69 96
[2020-06-06] MEDS: HYDROmorphone INJ 1 MG/ML SYRINGE IV PRN ×5 (10:59→23:52)
--- NOTE | 2020-06-06 13:28 | Hospitalist Progress Note ---
Date of Service June 06, 2020 Assessment & Plan (1) Chronic lumbar pain: s/p L3-L4 Revision Decompression, L3-L5 Fusion Surgeon: Serge Arthur, continues with lyrica and prn pain medications patient has a STEPHANE drain in place Patient is stable in the postoperative. Medical team will sign off but will do chart checks daily to look for laboratory and vital sign abnormalities (2) Depressive disorder: continue Cymbalta and Wellbutrin (3) Tobacco dependence: nicotine patch ordered Admission and Anticipated Discharge Date Admission Date: June 05, 2020 Subjective Patient doing well but has 7/10 pain after physical therapy STEPHANE output is nominal Review of Systems Review of Systems: Mild distress and fatigue no headache, blurry or double vision no speech or swallowing issues no chest pain, pressure or palpitations no shortness of breath, cough or wheezes no abdominal pain, nausea or vomiting, diarrhea or constipation no dysuria, hematuria or frequency no focal joint pain or swelling Postoperative back pain without radiation no bruising, bleeding or rashes no focal signs of weakness or numbness or altered sensation no complaints of anxiety or depression. Physical Exam Physical Exam: The patient appeared well nourished and normally developed. Vital signs as documented. Head exam is normocephalic atraumatic no scleral icterus Neck is without JVD, thyromegaly, or carotid bruits. Lungs are clear to auscultation, no focal loss of breath sounds Cardiac exam, Rhythm is regular.. No murmurs, rubs or gallops. Abdominal exam reveals normal bowel sounds, soft non tender, no masses Extremities are nonedematous and both pedal pulses are present Neurologic exam is alert and oriented, no focal loss of strength or sensation Patient is some moderate back pain without radicular component Skin is without bruises or rashes Psychologically is without concerns for anxiety or depression. Results & Data Results & Data ([facility]) Vital Signs (Past 12 Hours) Vital Signs Temp Pulse Resp BP BP Pulse Ox 06/06/20 10:22 98.8 F 99 H 18 104/65 92 06/06/20 07:25 98.8 F 96 H 18 95/58 L 92 06/06/20 03:12 98.4 F 102 H 18 104/69 91 PG Care Time/CCT Total # of Minutes Spent Total Time Spent with Patient: Total time spent is greater than 50% in co ordination of care (as documented) at patient's floor/unit and/or counseling patient: Coding Level of Care Code 76309 Subseq Hosp Care Lvl 2 Diagnoses Chronic lumbar pain M54.5; G89.29 Depressive disorder F32.9 Tobacco dependence F17.200
[2020-06-06] MEDS: DULOXETINE HCL 60 MG CAP PO SCH (20:43)
[2020-06-06] MEDS: DOCUSATE SODIUM/SENNA 50/8.6MG TAB PO SCH (20:50)
[2020-06-06] MEDS: FENOFIBRATE NANOCRYSTALLIZED 145 MG TABLET PO SCH (20:50)
[2020-06-06] MEDS: SIMVASTATIN 40 MG TAB PO SCH (20:51)
[2020-06-07] MEDS: OXYCODONE HCL IR 5 MG TAB (IMMEDIATE RELEASE) PO PRN ×5 (03:48→20:07)
[2020-06-07] MEDS: POLYETHYLENE (MIRALAX) 17 GM PACK PO SCH ×3 (05:32→17:41)
[2020-06-07] MEDS: ACETAMINOPHEN 500 MG TAB PO PRN (08:03)
[2020-06-07] MEDS: estradioL 1 MG TAB PO SCH (08:04)
[2020-06-07] MEDS: NICOTINE 21 MG/24 HR TDSY TD SCH (08:04)
[2020-06-07] MEDS: BuPROPion XL 300 MG TABCR PO SCH (08:05)
[2020-06-07] MEDS: PREGABALIN 100 MG CAP PO SCH ×3 (08:13→20:06)
--- NOTE | 2020-06-07 10:39 | Orthopedic Progress Note ---
Date of Service June 07, 2020 Assessment & Plan (1) Neurogenic claudication due to lumbar spinal stenosis: Admission and Anticipated Discharge Date Admission Date: June 05, 2020 Patient will continue with physical therapy today monitor STEPHANE output anticipate d ischarge home tomorrow. Subjective Patient continues struggling mostly with back pain today leg symptoms markedly improved. Physical Exam Physical Exam: On exam she is in a chair at the bedside. Is good strength testing. Appears comfortable. Results & Data ([facility]) Vital Signs (Past 12 Hours) Vital Signs Temp Pulse Resp BP BP Pulse Ox 06/07/20 07:38 36.6 C 99 H 16 125/75 94 06/06/20 23:30 97 06/06/20 23:25 36.7 C 96 H 18 107/68 79 L
[2020-06-07] MEDS: TRAMADOL HCL 50 MG TABLET PO PRN ×2 (13:42→19:03)
[2020-06-07] MEDS: FENOFIBRATE NANOCRYSTALLIZED 145 MG TABLET PO SCH (20:06)
[2020-06-07] MEDS: DULOXETINE HCL 60 MG CAP PO SCH (20:07)
[2020-06-07] MEDS: DOCUSATE SODIUM/SENNA 50/8.6MG TAB PO SCH (20:07)
[2020-06-07] MEDS: SIMVASTATIN 40 MG TAB PO SCH (20:07)
[2020-06-08] MEDS: OXYCODONE HCL IR 5 MG TAB (IMMEDIATE RELEASE) PO PRN ×3 (00:31→08:35)
[2020-06-08] MEDS: POLYETHYLENE (MIRALAX) 17 GM PACK PO SCH ×3 (00:32→11:21)
[2020-06-08] MEDS: NICOTINE 21 MG/24 HR TDSY TD SCH (08:30)
[2020-06-08] MEDS: BuPROPion XL 300 MG TABCR PO SCH (08:31)
[2020-06-08] MEDS: PREGABALIN 100 MG CAP PO SCH (08:31)
[2020-06-08] MEDS: estradioL 1 MG TAB PO SCH (08:31)
--- NOTE | 2020-06-08 10:47 | Discharge Summary ---
Date of Service June 08, 2020 Admission HPI Per Admitting Provider This is a 60-year-old female who presents with worsening back and bilateral leg pain. After failing course of nonoperative care is here for surgical invention. Principal Diagnosis Lumbar spinal stenosis with neurogenic claudication Discharge Data Allergies Allergy/AdvReac Type Severity Reaction Status Date / Time clindamycin Allergy Severe fever, Verified 06/05/20 09:48 mouth blisters Penicillins Allergy Unknown rxn as Verified 06/05/20 09:48 child, unknown rxn Consultations 06/05/20 15:54 Consult Case Management - Discharge Planning Routine Consult Hospitalist Routine Procedures Performed Operation Date: 06/05/20 11:05 Actual Procedures p L3-L4 Revision Decompression, L3-L5 Fusion, use of Infuse(Not Applicable) - Serge Arthur DO Ordered Studies 06/05/20 11:05 FL fluoroscopy <1hr Routine FL lumbar spine 2-3V Routine Hospital Course (1) Neurogenic claudication due to lumbar spinal stenosis: Patient underwent revision decompression fusion tolerated this well stay to the orthopedic floor postoperative. Postop day 1 she was up and ambulating progressed to postop day #2 on postop day #3 pain was controlled X strength testing STEPHANE drain decreasing appropriately. Subsequently discharged home. Discharge orders instructions from the chart for further review. Total Time Total Time Spent Total Time Spent (In Minutes): 20 minutes Discharge Plan Discharge Items Patient Disposition: Home - Self-Care Reason For Visit: Spinal Stenosis, Lumbar Region with Neurogenic Cla Discharge Diagnosis: Lumbar spinal stenosis with recurrent disc herniation and radiculopathy Activity: As commented below Non-emergency contact: Primary Care Provider Call non-emergency contact if: you have any medication questions Follow-up/Referrals: Alexis Littlejohn MD [Primary Care Provider] - Diet: Regular Addtl Attending Provider Instructions: ACTIVITY RECOMMENDATIONS: SELF CARE INSTRUCTIONS AFTER THORACIC/LUMBAR FUSIONS 1. You may walk to your tolerance. It is good exercise for your legs and back. Expect some back and intermittent leg aches and pains. 2. You may perform "counter-top" level activities (make a sandwich, iza with a project, etc.). 3. No bending or lifting of more than 10 pounds or back twisting of any nature (roll like a log when turning in bed). 4. You may ride in a car for 20-30 minutes at a time. No driving until after your first visit with your doctor. 5. Frequent changes of position and restricting sitting to 30 minutes at a time will help limit the amount of back spasms and stiffness you may experience. 6. You may discontinue the use of ambulatory aids (cane, crutches, etc.) once your strength and confidence allow. 7. You may engineer specialist the shower and let water strike your incision when you arrive home at least once daily. Do not take a tub bath, sit in a hot tub or go into a swimming pool until after your first recheck in the office. SPECIAL CARE INSTRUCTIONS: VERY IMPORTANT TO READ AND REVIEW A. Your surgical incision has been closed with a cosmetic suture under the skin that will dissolve in about 6 weeks. In 14 days, you can use a pair of clean scissors and cut the suture that is left outside of the skin at the ends of your incision. 1. The small skin tapes can be removed 7 days after surgery if they have not fallen off by that point. 2. You may keep the wound open to air as much as possible to promote healing after post-op day number 5 unless told otherwise by your doctor. 3. If you think the wound looks like it is becoming infected (redness or worsening drainage) and/or you are experiencing fever, chill or worsening back pain and muscle spasms, contact the office so that we may evaluate you as soon as possible. B. Complications are uncommon, but please contact us if you have any signs or symptoms of: 1. wound infection (fever higher than 102.5 degrees F, redness, separation of wound, drainage, or increasing pain from the incision) 2. blood clots in legs (pain, swelling, redness and warmth in legs) 3. urinary tract infection (fever higher than 102.5 degrees F, burning upon urination or increased frequency of urination) 4. nerve problems (inability to walk on your toes or heels, numbness, loss of bowel or bladder control) 5. any other symptoms that concern you C. Please call the office at if you have any concerns or questions about your operation or recovery. D. No smoking! Smoking drastically decreases the chance of a solid fusion. E. Do not take any anti-inflammatory medications (Indocin, Advil, Motrin, Aspirin, Naprosyn, etc.) as these may inhibit the chance of a solid fusion. Tylenol is okay to take for pain. MANAGING PAIN AFTER SPINAL SURGERY 1. Narcotic medication is intended for short-term use and will be provided for surgical pain. Surgical pain usually lasts for a period of 4-6 weeks. Narcotic medication includes Percocet, Vicodin, Darvocet, Tylenol #3 or Lortab. 2. Longer-term pain is more appropriately treated with non-narcotic medication such as Tylenol ES. 3. Muscle spasm is not appropriately treated with narcotics. Muscle relaxers such as Soma, Flexeril or Skelaxin can be used along with Tylenol ES. 4. Remember that we all live with some "aches and pains". This is not unusual or uncommon after an injury or as we get older. a. Back pain is expected and may include muscle spasms for 4 to 6 weeks after surgery. The pain should gradually improve. If the pain worsens for no apparent reason, please contact the office. b. Intermittent leg pain may also be experienced and should not be concerned about unless it worsens for no apparent reason. If so, please contact the office. 5. We will provide appropriate medication within the normal guidelines of their prescribed use. We will also be very cautious and aware of potential abuse and extended duration of patients' medication needs. a. Pain medications are for your comfort and to assist with sleep and rest so that the tissue can heal. They are not provided in order to return to normal activity and should not be used through the day. To do so or worsening pain at night can result from ongoing tissue damage and development of tolerance to the prescribed medicine. 6. Please allow 2-3 days to process refills. Prescriptions will not be mailed but must be picked up at the office. FOLLOW UP VISIT: Keep your scheduled follow-up appointment. Any questions, please call the office at . Pending Studies at Discharge: No Stand-Alone Forms: [facility], Smoking Cessation Medications and DC Order Prescriptions: New tramadol 50 mg tablet 50 mg PO Q6H PRN (Reason: pain, moderate) Qty: 20 RF: 0 oxycodone 5 mg tablet 5 mg PO Q6H PRN (Reason: pain, severe) Qty: 20 RF: 0 Continued cyclobenzaprine 10 mg tablet 10 mg PO HS PRN (Reason: Muscle Spasm) RF: 0 fenofibrate 160 mg tablet 160 mg PO HS Qty: 90 RF: 3 duloxetine [Cymbalta] 60 mg capsule,delayed release(DR/EC) 60 mg PO HS Qty: 90 RF: 3 simvastatin [Zocor] 40 mg tablet 40 mg PO HS Qty: 90 RF: 3 bupropion HCl 300 mg tablet extended release 24 hr 300 mg PO QAM Qty: 90 RF: 3 pregabalin [Lyrica] 200 mg capsule 200 mg PO TID Qty: 90 RF: 5 estradiol 2 mg tablet 2 mg PO DAILY Qty: 90 RF: 3 progesterone micronized 100 mg capsule 100 mg PO QAM 90 Days Qty: 90 RF: 3 acetaminophen [Tylenol Extra Strength] 500 mg Tablet 1,000 mg PO Q6H PRN (Reason: Pain) RF: 0 Discontinued ibuprofen [Advil] 200 mg tablet 600 mg PO BID PRN (Reason: Pain) RF: 0 Discharge Orders: Discharge Order (Routine); Ordered 06/08/20 Ordered By: Serge Arthur Admission Data Admit Date/Time: 06/05/20 13:56 Attending Provider: Serge Arthur Admit Provider: Serge Arthur Primary Care Provider: Alexis Littlejohn Other Providers: Franco Zaman
[2020-06-08] MEDS: ACETAMINOPHEN 500 MG TAB PO PRN (11:18)
[2020-06-08] MEDS: TRAMADOL HCL 50 MG TABLET PO PRN (11:18)
== END 2020-06-08 12:16 | disposition home or self-care (01) | DRG 455 ==
LOC: ASU 09:36 → 3W 13:56